=== PATIENT | female | born 1945 | race Caucasian/White ===

== ENCOUNTER → 2023-11-07 06:01 | Outpatient (REF) | payer MEDICARE, BC, SELFPAY ==
[2023-11-07 09:41] LABS: % Basophils 0.8 % (0-2); % Immature Granulocytes 0.2 % (0-0.5); % Lymphocytes 38.9 % (20.5-51.1); % Monocytes 8.5 % (1.7-9.3); % Neutrophils 47.6 % (42.2-75.2); Absolute Eosinophils 0.2 10^3/uL (0-0.7); Absolute Monocytes 0.4 10^3/uL (0.1-0.6); Absolute Neutrophils 2.5 10^3/uL (1.4-6.5); Hematocrit 41.4 % (37.0-47.0); Hemoglobin 13.3 g/dL (12.0-16.0); Mean Corp Hgb Conc. 32.1 g/dL (33.0-37.0); Mean Corpuscular Hgb 26.8 pg (27.0-31.0); Mean Corpuscular Volume 83.3 fL (81.0-99.0); Nucleated Red Blood Cells % 0 %; Platelet Count 268 10^3/uL (130-400); Red Blood Cell Count 4.97 10^6/uL (4.20-5.40); White Blood Cell Count 5.2 10^3/uL (4.8-10.8)
[2023-11-07 09:57] LABS: ALT (SGPT) 17 U/L (0-35); AST (SGOT) 30 U/L (14-36); Albumin 4.4 g/dl (3.5-5.0); Alkaline Phosphatase 72 U/L (38-126); Blood Urea Nitrogen 20 mg/dl (7-17); Carbon Dioxide 26 mmol/L (22-30); Chloride 103 mmol/L (98-107); Glucose 95 mg/dl (70-99); Potassium 4.3 mmol/L (3.5-5.1); Sodium 134 mmol/L (135-145); Total Bilirubin 0.8 mg/dl (0.2-1.3); Total Protein 7.2 g/dl (6.3-8.2); eGFR > 60.00
[2023-11-07 10:24] LABS: TSH 5.57 uIU/ml (0.47-4.68)
== END ==
LOC: HWLAB 06:01
PROVIDERS: ATTENDING PHYSICIAN Nurse Practitioner Family
DX: Z01.818 Encounter for other preprocedural examination (principal); R79.89 Other specified abnormal findings of blood chemistry; H26.9 Unspecified cataract
CPT/HCPCS: 36415; 80053; 84443; 85025

== ENCOUNTER → 2024-02-10 13:54 | Outpatient (REF) | payer MEDICARE, BC, SELFPAY | LOC: WDC 13:54 | PROVIDERS: ATTENDING PHYSICIAN Family Medicine | DX: Z12.31 Encounter for screening mammogram for malignant neoplasm of breast (principal) | CPT/HCPCS: 77063; 77067 ==

== ENCOUNTER → 2024-08-10 12:38 | Outpatient (REF) | payer OTHER, SELFPAY | LOC: HWRAD 12:38 | PROVIDERS: ATTENDING PHYSICIAN Family Medicine; FAMILY PHYSICIAN Family Medicine | DX: M79.662 Pain in left lower leg (principal) | CPT/HCPCS: 93971 ==

== ENCOUNTER → 2024-10-12 10:40 | Outpatient (REF) | payer OTHER, SELFPAY | LOC: RAD 10:40 | PROVIDERS: ATTENDING PHYSICIAN Nurse Practitioner Family; FAMILY PHYSICIAN Family Medicine | DX: R05.3 Chronic cough (principal) | CPT/HCPCS: 71046 ==

== ENCOUNTER → 2024-11-18 06:03 | Outpatient (REF) | payer OTHER, SELFPAY ==
[2024-11-18 09:46] LABS: % Basophils 0.9 % (0-2); % Eosinophils 3.9 % (0-6); % Immature Granulocytes 0.2 % (0-0.5); % Lymphocytes 35.3 % (20.5-51.1); % Monocytes 8.5 % (1.7-9.3); % Neutrophils 51.2 % (42.2-75.2); Absolute Basophils 0.1 10^3/uL (0-0.2); Absolute Eosinophils 0.2 10^3/uL (0-0.7); Absolute Lymphocytes 1.9 10^3/uL (1.2-3.4); Absolute Monocytes 0.5 10^3/uL (0.1-0.6); Absolute Neutrophils 2.7 10^3/uL (1.4-6.5); Hemoglobin 13.6 g/dL (12.0-16.0); Mean Corp Hgb Conc. 32.4 g/dL (33.0-37.0); Mean Corpuscular Hgb 26.7 pg (27.0-31.0); Mean Corpuscular Volume 82.4 fL (81.0-99.0); Nucleated Red Blood Cells % 0 %; Platelet Count 262 10^3/uL (130-400); Red Cell Dist. Width 13.8 % (11.5-14.5); White Blood Cell Count 5.3 10^3/uL (4.8-10.8)
[2024-11-18 10:00] LABS: ALT (SGPT) 17 U/L (0-35); AST (SGOT) 24 U/L (14-36); Albumin 4.5 g/dl (3.5-5.0); Alkaline Phosphatase 64 U/L (38-126); Blood Urea Nitrogen 24 mg/dl (7-17); Calcium 9.6 mg/dl (8.4-10.2); Carbon Dioxide 26 mmol/L (22-30); Chloride 103 mmol/L (98-107); Glucose 98 mg/dl (70-99); HDL Cholesterol 86 mg/dl; LDL Cholesterol, Calculated 116 mg/dl; Potassium 4.5 mmol/L (3.5-5.1); Sodium 136 mmol/L (135-145); Total Bilirubin 0.8 mg/dl (0.2-1.3); Total Cholesterol 220 mg/dl (50-199); Total Protein 7.1 g/dl (6.3-8.2); Triglyceride 93 mg/dl (10-149); Very Low Density Lipoprotein 18 mg/dl (0-30); eGFR 51.75
[2024-11-18 12:21] LABS: TSH Reflex To Free T4 5.03 uIU/ml (0.47-4.68)
[2024-11-18 12:48] LABS: Free T4 1.35 ng/dl (0.78-2.19)
== END ==
LOC: HWLAB 06:03
PROVIDERS: ATTENDING PHYSICIAN Family Medicine
DX: E03.9 Hypothyroidism, unspecified (principal); R79.89 Other specified abnormal findings of blood chemistry; M79.10 Myalgia, unspecified site; R53.83 Other fatigue; R03.0 Elevated blood-pressure reading, without diagnosis of hypertension; E78.5 Hyperlipidemia, unspecified
CPT/HCPCS: 36415; 80053; 80061; 84439; 84443; 85025

== ENCOUNTER → 2025-02-10 12:56 | Outpatient (REF) | payer OTHER, SELFPAY | LOC: WDC 12:56 | PROVIDERS: ATTENDING PHYSICIAN Family Medicine | DX: Z12.31 Encounter for screening mammogram for malignant neoplasm of breast (principal) | CPT/HCPCS: 77063; 77067 ==